=== PATIENT | male | born 1990 | race Caucasian/White ===

== ENCOUNTER 2017-02-25 15:42 | Emergency (ER) | payer OTHER ==
[2017-02-25 15:55] VITALS: O2SAT 98
[2017-02-25] MEDS ORDERED: Sodium Chloride 0.9% 1000 ML 1,000 ML IV STA (15:56)
[2017-02-25] MEDS ORDERED: MORPHINE SULFATE 2 MG INJ IV ONE (15:56)
[2017-02-25] MEDS ORDERED: Sodium Chloride 0.9% 1000 ML 1,000 ML ONE (16:01)
[2017-02-25] MEDS ORDERED: MORPHINE SULFATE 2 MG INJ ONE (16:01)
--- NOTE | 2017-02-25 16:05 | ERPHSYRPT ---
- History of Present Illness Time Seen by Provider: 02/25/17 16:03 Historian: patient Exam Limitations: no limitations Patient Subjective Stated Complaint: pt reports chest pain/pressure radiating to left arm beginning yesterday et progressively worse-reports difficulty breathing et unable to take a deep breath Triage Nursing Assessment: pt pink warm et [id number] nonlabored et shallow- lungs clear et equal-pt speaking in complete senteces with ease-cap refill 3 seconds Physician History: pt reports chest pain/pressure radiating to left arm beginning yesterday et progressively worse-reports difficulty breathing et unable to take a deep breath Timing/Duration: today Activities at Onset: none Quality: stabbing Location: substernal Chest Pain Radiation: arm Severity of Pain-Max: moderate Severity of Pain-Current: moderate Modifying Factors: Improves With: nothing Associated Symptoms: palpitations Prior Chest Pain/Cardiac Workup: no prior chest pain Nitro Today/Relief: no nitro taken today Aspirin Treatment Today: no aspirin today Allergies/Adverse Reactions: No Known Drug Allergies Allergy (Unverified 02/25/17 15:55) Home Medications: Omeprazole [Prilosec] 20 mg PO DAILY 02/25/17 [History] Hx Tetanus, Diphtheria Vaccination/Date Given: No Hx Influenza Vaccination/Date Given: No Hx Pneumococcal Vaccination/Date Given: No Immunizations Up to Date: Yes - Review of Systems Constitutional: No Fever, No Chills Eyes: No Symptoms Ears, Nose, & Throat: No Symptoms Respiratory: No Cough, No Dyspnea Cardiac: Chest Pain, Palpitations, No Edema, No Syncope Abdominal/Gastrointestinal: No Abdominal Pain, No Nausea, No Vomiting, No Diarrhea Genitourinary Symptoms: No Dysuria Musculoskeletal: No Back Pain, No Neck Pain Skin: No Rash Neurological: No Dizziness, No Focal Weakness, No Sensory Changes Psychological: No Symptoms Endocrine: No Symptoms All Other Systems: Reviewed and Negative - Past Medical History Pertinent Past Medical History: Yes GI Medical History: GERD - Past Surgical History Past Surgical History: Yes Gastrointestinal: Hernia Repair - Social History Smoking Status: Current every day smoker How long have you smoked: yrs Exposure to second hand smoke: Yes Drug Use: none Patient Lives Alone: No - Nursing Vital Signs Nursing Vital Signs: Initial Vital Signs Temperature 98.2 F 02/25/17 15:51 Pulse Rate 98 H 02/25/17 15:51 Respiratory Rate 20 02/25/17 15:51 Blood Pressure 153/84 02/25/17 15:51 O2 Sat by Pulse Oximetry 98 02/25/17 15:51 Pain Scale Pain Intensity 7 - Physical Exam General Appearance: no apparent distress, alert Eye Exam: PERRL/EOMI, eyes nml inspection Ears, Nose, Throat Exam: normal ENT inspection, moist mucous membranes Neck Exam: normal inspection, non-tender, supple, full range of motion Respiratory Exam: normal breath sounds, lungs clear, No respiratory distress Cardiovascular Exam: normal heart sounds, normal peripheral pulses, tachycardia , capillary refill <2 sec, No murmur, No edema, No pulse deficit Gastrointestinal/Abdomen Exam: soft, No tenderness, No mass Back Exam: normal inspection, No CVA tenderness, No vertebral tenderness Extremity Exam: normal inspection, normal range of motion Neurologic Exam: alert, oriented x 3, cooperative, normal mood/affect, sensation nml, No motor deficits Skin Exam: normal color, warm, dry SpO2: 98 Oxygen Delivery: Room Air - Course EKG Interpreted by Me: Sinus Tach Rhythm Strip: Sinus Tachycardia Ordered Tests: Active Orders 24 hr Category Date Time Status Labels Molder STAT Care 02/25/17 15:57 Active EKG-ER Only STAT Care 02/25/17 15:56 Active CHEST 2 VIEWS (PA AND LAT) Stat Exams 02/25/17 15:57 Taken CBC W DIFF Stat Lab 02/25/17 16:06 Completed CMP Stat Lab 02/25/17 16:06 Completed D-DIMER QUANTITATION Stat Lab 02/25/17 16:06 Completed TROPONIN Stat Lab 02/25/17 16:06 Completed Urine Triage Profile Stat Lab 02/25/17 15:57 Ordered Medication Summary Discontinued Medications Generic Name Dose Route Start Last Admin Trade Name Freq PRN Reason Stop Dose Admin Sodium Chloride 1,000 mls @ 999 mls/hr 02/25/17 15:56 02/25/17 16:03 Sodium Chloride 0.9% 1000 Ml IV 02/25/17 16:56 999 mls/hr .Q1H1M STA Administration Sodium Chloride Confirm 02/25/17 16:01 Sodium Chloride 0.9% 1000 Ml Administered 02/25/17 16:02 Dose 1,000 mls @ ud .ROUTE .STK-MED ONE Metoprolol Tartrate 50 mg 02/25/17 16:43 02/25/17 16:49 Lopressor 25mg Tab PO 02/25/17 16:44 50 mg STAT ONE Administration Metoprolol Tartrate Confirm 02/25/17 16:47 Lopressor 50 Mg Administered 02/25/17 16:48 Dose 50 mg .ROUTE .STK-MED ONE Morphine Sulfate 2 mg 02/25/17 15:56 02/25/17 16:03 Morphine Sulfate 2 Mg Inj IV 02/25/17 15:57 2 mg STAT ONE Administration Morphine Sulfate Confirm 02/25/17 16:01 Morphine Sulfate 2 Mg Inj Administered 02/25/17 16:02 Dose 2 mg .ROUTE .STK-MED ONE Lab/Rad Data: Laboratory Result Diagrams 02/25/17 16:06 02/25/17 16:06 Laboratory Results 02/25/17 02/25/17 02/25/17 Range/Units 16:06 16:06 16:06 WBC (4.0-10.5) K/mm3 RBC (4.1-5.6) M/mm3 Hgb (12.5-18.0) gm/dl Hct (42-50) % MCV (78-100) fl MCH (26-32) pg MCHC (32-36) g/dl RDW (11.5-14.0) % Plt Count (150-450) K/mm3 MPV (6-9.5) fl Gran % (36.0-66.0) % Lymphocytes % (24.0-44.0) % Monocytes % (0.0-12.0) % Eosinophils % (0.00-5.0) % Basophils % (0.0-0.4) % Basophils # (0-0.4) D-Dimer < 200 (0-500) ng/mL Sodium 143 (136-145) mEq/L Potassium 4.1 (3.5-5.1) mEq/L Chloride 105 (98-107) mEq/L Carbon Dioxide 27.4 (21-32) mEq/L Anion Gap 14.7 (5-15) MEQ/L BUN 11 (9-20) mg/dL Creatinine 1.05 (0.55-1.30) mg/dl Estimated GFR > 60 ML/MIN Glucose 95 (70-110) MG/DL Calcium 9.4 (8.5-10.1) mg/dL Total Bilirubin 0.60 (0.2-1.0) mg/dL AST 27 (15-37) U/L ALT 36 (12-78) U/L Alkaline Phosphatase 70 (46-116) U/L Troponin I < 0.017 (0.000-0.056) ng/ml Serum Total Protein 8.0 (6.4-8.2) gm/dL Albumin 4.6 (3.4-5.0) g/dL 02/25/17 Range/Units 16:06 WBC 8.0 (4.0-10.5) K/mm3 RBC 5.28 (4.1-5.6) M/mm3 Hgb 17.7 (12.5-18.0) gm/dl Hct 51.2 H (42-50) % MCV 97.0 (78-100) fl MCH 33.5 H (26-32) pg MCHC 34.6 (32-36) g/dl RDW 12.9 (11.5-14.0) % Plt Count 213 (150-450) K/mm3 MPV 9.1 (6-9.5) fl Gran % 61.1 (36.0-66.0) % Lymphocytes % 28.8 (24.0-44.0) % Monocytes % 8.7 (0.0-12.0) % Eosinophils % 1.2 (0.00-5.0) % Basophils % 0.2 (0.0-0.4) % Basophils # 0.02 (0-0.4) D-Dimer (0-500) ng/mL Sodium (136-145) mEq/L Potassium (3.5-5.1) mEq/L Chloride (98-107) mEq/L Carbon Dioxide (21-32) mEq/L Anion Gap (5-15) MEQ/L BUN (9-20) mg/dL Creatinine (0.55-1.30) mg/dl Estimated GFR ML/MIN Glucose (70-110) MG/DL Calcium (8.5-10.1) mg/dL Total Bilirubin (0.2-1.0) mg/dL AST (15-37) U/L ALT (12-78) U/L Alkaline Phosphatase (46-116) U/L Troponin I (0.000-0.056) ng/ml Serum Total Protein (6.4-8.2) gm/dL Albumin (3.4-5.0) g/dL - Progress Progress: improved Air Movement: good Blood Culture(s) Obtained: No Antibiotics given: No Counseled pt/family regarding: lab results, diagnosis, need for follow-up, rad results - Departure Time of Disposition: 16:57 Departure Disposition: Home Clinical Impression: Heart palpitations, Elevated blood pressure, situational Condition: Stable Critical Care Time: Yes Critical Care Time(excluding separately billable procedures): 30-74 minutes Referrals: GABINO PRINCE [NON-STAFF PHY W/O PRIVILEGES] - Instructions: Arrhythmias, Hypertension Additional Instructions: Please follow-up with your primary care physician RENEE in next 2-3 days. We have ruled out emergent cause of palpitation, but you stimulate further workup for your problem. You also have a elevated blood pressure, for which we have given you. Metoprolol 50 mg at night, which will also help you for your palpitation. You should not drink heavy alcohol consumption. Do not drive for at least 12 hours. Prescriptions: Metoprolol Tartrate 50 mg [Lopressor 50 MG] 50 mg PO QHS #30 tablet
[2017-02-25 16:08] LABS: BASOPHIL % 0.2 % (0.0-0.4); Eosinophil % 1.2 % (0.00-5.0); Granulocytes % 61.1 % (36.0-66.0); Lymphocytes % 28.8 % (24.0-44.0); Mean Corpuscular Hemoglobin 33.5 pg (26-32); Mean Platelet Volume 9.1 fl (6-9.5); Monocytes % 8.7 % (0.0-12.0); Platelet Count 213 K/mm3 (150-450); Red Blood Count 5.28 M/mm3 (4.1-5.6); Red Cell Distribution Width 12.9 % (11.5-14.0)
[2017-02-25 16:37] LABS: ALBUMIN 4.6 g/dL (3.4-5.0); ALKALINE PHOSPHATASE 70 U/L (46-116); ANION GAP 14.7 MEQ/L (5-15); BLOOD UREA NITROGEN 11 mg/dL (9-20); CHLORIDE 105 mEq/L (98-107); Carbon Dioxide 27.4 mEq/L (21-32); Glucose 95 MG/DL (70-110); Potassium 4.1 mEq/L (3.5-5.1); SGOT/AST 27 U/L (15-37); SGPT/ALT 36 U/L (12-78); SODIUM 143 mEq/L (136-145)
[2017-02-25] MEDS ORDERED: Lopressor 25MG Tab PO ONE (16:43)
[2017-02-25] MEDS ORDERED: Lopressor 50 MG ONE (16:47)
[2017-02-25 17:31] VITALS: BP 130/70; PULSE 88
--- NOTE | 2017-02-25 21:16 | XRAY ---
Indication: Chest pressure. Comparison: None PA/lateral chest hyperinflated and clear. Heart is not enlarged. Vascularity normal. Bony thorax intact. Impression: Nonacute hyperinflated chest.
== END 2017-02-25 17:31 | disposition home or self-care (01) ==
LOC: ED 15:42
DX: R00.2 Palpitations (principal); R03.0 Elevated blood-pressure reading, without diagnosis of hypertension; R07.9 Chest pain, unspecified
CPT/HCPCS: 36000; 36415; 71020; 80053; 84484; 85025; 85379; 93005; 93041; 96360; 96374; 99284; J2270; A9270-GY

== ENCOUNTER 2017-03-10 10:56 | Emergency (ER) | payer OTHER ==
[2017-03-10] MEDS ORDERED: THIAMINE 200 MG/2 ML IM ONE (11:56)
[2017-03-10] MEDS ORDERED: Dextrose 5%-Lr IV Solution 1000 ML 1,000 ML IV SCH (12:00)
[2017-03-10] MEDS ORDERED: THIAMINE 200 MG/2 ML ONE (12:02)
[2017-03-10] MEDS ORDERED: Dextrose 5%-Lr IV Solution 1000 ML 1,000 ML IV ONE (12:02)
--- NOTE | 2017-03-10 12:23 | ERPHSYRPT ---
- History of Present Illness Time Seen by Provider: 03/10/17 12:11 Source: patient Patient Subjective Stated Complaint: PT REPORTS DRINKING A CASE OF BEER A DAY- LAST DRINK CAIO 1000 THIS AM-REPORTS HEADACHE-DENIES TREMORS DENIES N/V Triage Nursing Assessment: PT PINK WARM ET DRY-RESP EASY ET NONLABORED-SPEAKING IN COMPLETE [id number] ANSWERING ALL QUESTIONS CORRECTLY Physician History: CC: alcohol Hx: 26 y/o patient with no local doctor. He has hx of alcohol abuse. He had been thru detox one year ago in [place]. He moved here three weeks ago in attempt to reconnect with exwife. That did not work out so he started drinking alcohol for past 8 days, drinking 30 beers per day as he was upset about exwife. He now wants to stop alcohol again. He drank 1 beer at 10AM. Quit drinking this AM at 5AM. He lives alone but has family. No suicide thoughts, no hallucinations, head feels heavy, blurry vision. ALL: PCN Meds: Omperozaole Surg: Testicle, hernia Social: Allergies/Adverse Reactions: No Known Drug Allergies Allergy (Verified 03/10/17 11:53) Home Medications: Omeprazole [Prilosec] 20 mg PO DAILY 02/25/17 [History] Hx Tetanus, Diphtheria Vaccination/Date Given: No Hx Influenza Vaccination/Date Given: No Hx Pneumococcal Vaccination/Date Given: No Immunizations Up to Date: Yes - Past Medical History Pertinent Past Medical History: Yes GI Medical History: GERD Other Medical History: alcohol abuse - Past Surgical History Past Surgical History: Yes Gastrointestinal: Hernia Repair - Social History Smoking Status: Current every day smoker How long have you smoked: yrs Exposure to second hand smoke: Yes Drug Use: none Patient Lives Alone: No - Review of Systems Constitutional: No Fever, No Chills Eyes: Vision Changes Ears, Nose, & Throat: No Symptoms Respiratory: No Symptoms Cardiac: No Chest Pain Abdominal/Gastrointestinal: No Abdominal Pain, No Nausea, No Vomiting, No Diarrhea Genitourinary Symptoms: No Dysuria Musculoskeletal: No Back Pain, No Neck Pain Neurological: No Focal Weakness, No Headache, No Parasthesia Psychological: Alcohol Abuse, No Drug Abuse, No Depression, No Suicidal Ideations, No Homicidal Ideations, No Emotional Lability, No Hallucinations All Other Systems: Reviewed and Negative - Nursing Vital Signs Nursing Vital Signs: Initial Vital Signs Temperature 98.3 F 03/10/17 11:50 Pulse Rate 86 03/10/17 11:50 Respiratory Rate 20 03/10/17 11:50 Blood Pressure 129/80 03/10/17 11:50 O2 Sat by Pulse Oximetry 96 03/10/17 11:50 Pain Scale Pain Intensity 6 - Physical Exam General Appearance: alert Eyes, Ears, Nose, Throat Exam: normal ENT inspection, moist mucous membranes Neck Exam: normal inspection, non-tender, supple Respiratory Exam: normal breath sounds, lungs clear Cardiovascular Exam: regular rate/rhythm Gastrointestinal/Abdominal Exam: soft, No tenderness, No distention Extremities Exam: normal inspection, normal range of motion Neurological Exam: alert, normal mood/affect, calm, 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, oriented x 3 Appearance: appropriate appearance Thoughts/Hallucinations: normal thought pattern Skin Exam: normal color, warm, dry, No rash SpO2 Interpretation: normal SpO2: 97 Oxygen Delivery: Room Air - Course Nursing assessment & vital signs reviewed: Yes EKG Interpreted by Me: RATE (70), Sinus Rhythm, NORMAL AXIS, NORMAL INTERVALS ( QTc 424), NORMAL QRS, NORMAL ST-T Ordered Tests: Active Orders 24 hr Category Date Time Status Clean Catch Urine Specimen STAT Care 03/10/17 11:56 Active EKG-ER Only STAT Care 03/10/17 11:56 Active IV Insertion STAT Care 03/10/17 11:56 Active Psychiatric Evaluation STAT Care 03/10/17 12:53 Active Pulse Oximetry (ED) STAT Care 03/10/17 11:56 Active Regular Diet Diet 03/10/17 Lunch Active CBC W DIFF Stat Lab 03/10/17 12:00 Completed CMP Stat Lab 03/10/17 12:00 Completed ETHYL ALCOHOL Stat Lab 03/10/17 12:00 Completed MAGNESIUM Stat Lab 03/10/17 12:00 Completed PROTIME WITH INR Stat Lab 03/10/17 12:00 Completed UA W/RFX UR CULTURE Stat Lab 03/10/17 12:00 Completed Urine Triage Profile Stat Lab 03/10/17 12:00 Completed Medication Summary Generic Name Dose Route Start Last Admin Trade Name Freq PRN Reason Stop Dose Admin Dextrose/Lactated Ringer's 1,000 mls @ 100 mls/hr 03/10/17 12:00 03/10/17 12: 09 Dextrose 5%-Lr Iv Solution 1000 Ml IV 04/09/17 11:59 100 mls/hr .Q10H NLIDA Administration Discontinued Medications Generic Name Dose Route Start Last Admin Trade Name Mariza PRN Reason Stop Dose Admin Thiamine HCl 100 mg 03/10/17 11:56 03/10/17 12:09 Thiamine 200 Mg/2 Ml IM 03/10/17 11:57 100 mg STAT ONE Administration Thiamine HCl Confirm 03/10/17 12:02 Thiamine 200 Mg/2 Ml Administered 03/10/17 12:03 Dose 200 mg .ROUTE .STK-MED ONE Lab/Rad Data: Laboratory Result Diagrams 03/10/17 12:00 03/10/17 12:00 Laboratory Results 03/10/17 03/10/17 03/10/17 Range/Units 12:00 12:00 12:00 WBC 6.0 (4.0-10.5) K/mm3 RBC 5.25 (4.1-5.6) M/mm3 Hgb 17.9 (12.5-18.0) gm/dl Hct 51.6 H (42-50) % MCV 98.3 (78-100) fl MCH 34.1 H (26-32) pg MCHC 34.7 (32-36) g/dl RDW 12.8 (11.5-14.0) % Plt Count 152 (150-450) K/mm3 MPV 11.1 H (6-9.5) fl Gran % 51.3 (36.0-66.0) % Lymphocytes % 36.0 (24.0-44.0) % Monocytes % 9.0 (0.0-12.0) % Eosinophils % 3.0 (0.00-5.0) % Basophils % 0.7 (0.0-0.4) % Basophils # 0.04 (0-0.4) INR 1.02 (0.8-3.0) Sodium 142 (136-145) mEq/L Potassium 4.0 (3.5-5.1) mEq/L Chloride 106 (98-107) mEq/L Carbon Dioxide 26.2 (21-32) mEq/L Anion Gap 14.2 (5-15) MEQ/L BUN 7 L (9-20) mg/dL Creatinine 0.87 (0.55-1.30) mg/dl Estimated GFR > 60 ML/MIN Glucose 78 (70-110) MG/DL Calcium 8.9 (8.5-10.1) mg/dL Magnesium 2.1 (1.8-2.4) mg/dL Total Bilirubin 0.30 (0.2-1.0) mg/dL AST 30 (15-37) U/L ALT 29 (12-78) U/L Alkaline Phosphatase 67 (46-116) U/L Serum Total Protein 7.8 (6.4-8.2) gm/dL Albumin 4.5 (3.4-5.0) g/dL Ur Collection Type Urine Color (YELLOW) Urine Appearance (CLEAR) Urine pH (5-6) Ur Specific [place] (1.005-1.025) Urine Protein (Negative) Urine Ketones (NEGATIVE) Urine Blood (0-5) Adi/ul Urine Nitrite (NEGATIVE) Urine Bilirubin (NEGATIVE) Urine Urobilinogen (0-1) mg/dL Ur Leukocyte Esterase (NEGATIVE) Urine Glucose (NEGATIVE) mg/dL Urine Opiates Level (NEGATIVE) Ur Methadone (NEGATIVE) Urine Barbiturates (NEGATIVE) Ur Phencyclidine (PCP) (NEGATIVE) Urine Amphetamine (NEGATIVE) U Benzodiazepine Level (NEGATIVE) Urine Cocaine (NEGATIVE) Urine Marijuana (THC) (NEGATIVE) Ethyl Alcohol 0.050 H (0.00-0.01) % Specimen Received 03/10/17 03/10/17 Range/Units 12:00 12:00 WBC (4.0-10.5) K/mm3 RBC (4.1-5.6) M/mm3 Hgb (12.5-18.0) gm/dl Hct (42-50) % MCV (78-100) fl MCH (26-32) pg MCHC (32-36) g/dl RDW (11.5-14.0) % Plt Count (150-450) K/mm3 MPV (6-9.5) fl Gran % (36.0-66.0) % Lymphocytes % (24.0-44.0) % Monocytes % (0.0-12.0) % Eosinophils % (0.00-5.0) % Basophils % (0.0-0.4) % Basophils # (0-0.4) INR (0.8-3.0) Sodium (136-145) mEq/L Potassium (3.5-5.1) mEq/L Chloride (98-107) mEq/L Carbon Dioxide (21-32) mEq/L Anion Gap (5-15) MEQ/L BUN (9-20) mg/dL Creatinine (0.55-1.30) mg/dl Estimated GFR ML/MIN Glucose (70-110) MG/DL Calcium (8.5-10.1) mg/dL Magnesium (1.8-2.4) mg/dL Total Bilirubin (0.2-1.0) mg/dL AST (15-37) U/L ALT (12-78) U/L Alkaline Phosphatase (46-116) U/L Serum Total Protein (6.4-8.2) gm/dL Albumin (3.4-5.0) g/dL Ur Collection Type VOID Urine Color YELLOW (YELLOW) Urine Appearance CLEAR (CLEAR) Urine pH 6.0 (5-6) Ur Specific [place] 1.015 (1.005-1.025) Urine Protein NEGATIVE (Negative) Urine Ketones NEGATIVE (NEGATIVE) Urine Blood NEGATIVE (0-5) Adi/ul Urine Nitrite NEGATIVE (NEGATIVE) Urine Bilirubin NEGATIVE (NEGATIVE) Urine Urobilinogen NORMAL (0-1) mg/dL Ur Leukocyte Esterase NEGATIVE (NEGATIVE) Urine Glucose NEGATIVE (NEGATIVE) mg/dL Urine Opiates Level NEG. (NEGATIVE) Ur Methadone NEG. (NEGATIVE) Urine Barbiturates NEG. (NEGATIVE) Ur Phencyclidine (PCP) NEG. (NEGATIVE) Urine Amphetamine NEG. (NEGATIVE) U Benzodiazepine Level NEG. (NEGATIVE) Urine Cocaine NEG. (NEGATIVE) Urine Marijuana (THC) NEG. (NEGATIVE) Ethyl Alcohol (0.00-0.01) % Specimen Received 03/10/2017 1220 - Progress Progress Note: 03/10/17 15:15 Labs reviewed. Vitals signs stable with no evidence of delerium tremens. Pt ate meal. Had HC Tele consult. Spoke to Dr Jimenez who stafffed with [employer] and santiago advised OP follow up for alcohol. Counseled pt/family regarding: lab results, diagnosis, need for follow-up - Departure Time of Disposition: 15:16 Departure Disposition: Home Clinical Impression: Alcohol consumption binge drinking Condition: Stable Critical Care Time: No Referrals: Provider,Unknown [Primary Care Provider] - [facility] [Provider Group] Instructions: Alcohol Abuse and Alcoholism Additional Instructions: No driving and stay with family today. Arrange outpatient follow up as advised by [facility]- list of resources attached. Return for problems or concerns.
[2017-03-10 12:40] LABS: BASOPHIL % 0.7 % (0.0-0.4); Granulocytes % 51.3 % (36.0-66.0); Mean Cell Volume 98.3 fl (78-100); Mean Corpuscular Hemoglobin 34.1 pg (26-32); Mean Platelet Volume 11.1 fl (6-9.5); Platelet Count 152 K/mm3 (150-450); Red Blood Count 5.25 M/mm3 (4.1-5.6); Red Cell Distribution Width 12.8 % (11.5-14.0)
[2017-03-10 12:41] LABS: Collection Type VOID; INR 1.02 (0.8-3.0); Leukocyte Esterase NEGATIVE (NEGATIVE); PROTIME 11.4 SECONDS (8.83-12.87)
[2017-03-10 12:42] LABS: ADD URINE CULTURE? NO (NO); ALBUMIN 4.5 g/dL (3.4-5.0); ALKALINE PHOSPHATASE 67 U/L (46-116); ANION GAP 14.2 MEQ/L (5-15); BLOOD UREA NITROGEN 7 mg/dL (9-20); Bilirubin NEGATIVE (NEGATIVE); Blood NEGATIVE Ery/ul (0-5); CHLORIDE 106 mEq/L (98-107); COMPLETE URINE MICROSCOPIC? NO; Carbon Dioxide 26.2 mEq/L (21-32); Glucose 78 MG/DL (70-110); Glucose NEGATIVE (NEGATIVE); MAGNESIUM 2.1 mg/dL (1.8-2.4); SGOT/AST 30 U/L (15-37); SGPT/ALT 29 U/L (12-78); SODIUM 142 mEq/L (136-145); Total Protein 7.8 gm/dL (6.4-8.2)
[2017-03-10 15:39] VITALS: BP 134/60; PULSE 88; O2SAT 99
== END 2017-03-10 15:37 | disposition home or self-care (01) ==
LOC: ED 10:56
DX: F10.129 Alcohol abuse with intoxication, unspecified (principal)
CPT/HCPCS: 36000; 36415; 80053; 80307; 81002; 83735; 85025; 85610; 90791; 93005; 96360; 96361; 96372; 99285; G0481; Q3014

== ENCOUNTER 2020-09-27 15:55 | Emergency (ER) | payer OTHER ==
--- NOTE | 2020-09-27 16:03 | ERPHSYRPT ---
- History of Present Illness Time Seen by Provider: 09/27/20 16:03 Source: patient, EMS Exam Limitations: no limitations Physician History: This is a 30-year-old white male who is not taking any medications chronically and presents to the emergency department because of sensation of palpitations and rapid heart rate. 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 However, he relapsed earlier today. He is not having chest pain. He has no abdominal pain. He is not short of breath. He has had no nausea vomiting or fevers. Patient is not suicidal or homicidal. Timing/Duration: today Severity of Symptoms-Max: mild Severity of Symptoms-Current: mild Context related to: other (Methamphetamine abuserelapse) Associated Symptoms: anxiety, ingestion Previous symptoms: same symptoms as today Allergies/Adverse Reactions: Penicillins Allergy (Verified 09/27/20 16:05) Home Medications: No Reportable Medications [No Reported Medications] 09/27/20 [History] Hx Tetanus, Diphtheria Vaccination/Date Given: No Hx Influenza Vaccination/Date Given: No Hx Pneumococcal Vaccination/Date Given: No Travel Risk - International Travel Have you traveled outside of the country in past 3 weeks: No - Coronavirus Screening Are you exhibiting any of the following symptoms?: No Close contact with a COVID-19 positive Pt in past 14-21 Days: No - Vaccine Status Have you recieved a Covid-19 vaccination: No - Past Medical History Pertinent Past Medical History: Yes Neurological History: No Pertinent History ENT History: No Pertinent History Cardiac History: No Pertinent History Respiratory History: No Pertinent History Endocrine Medical History: No Pertinent History Musculoskeletal History: No Pertinent History GI Medical History: GERD History: No Pertinent History Psycho-Social History: No Pertinent History Male Reproductive Disorders: No Pertinent History Other Medical History: alcohol abuse - Past Surgical History Past Surgical History: Yes Neuro Surgical History: No Pertinent History Cardiac: No Pertinent History Respiratory: No Pertinent History Gastrointestinal: Hernia Repair Genitourinary: No Pertinent History Musculoskeletal: No Pertinent History - Social History Smoking Status: Current every day smoker How long have you smoked: yrs Exposure to second hand smoke: Yes Drug Use: none Patient Lives Alone: No - Review of Systems Constitutional: No Symptoms Eyes: No Symptoms Ears, Nose, & Throat: No Symptoms Respiratory: No Symptoms Cardiac: Palpitations Abdominal/Gastrointestinal: No Symptoms Genitourinary Symptoms: No Symptoms Musculoskeletal: No Symptoms Skin: No Symptoms Neurological: No Symptoms Psychological: Drug Abuse, Anxiety Endocrine: No Symptoms Hematologic/Lymphatic: No Symptoms Immunological/Allergic: No Symptoms All Other Systems: Reviewed and Negative - Nursing Vital Signs Nursing Vital Signs: Initial Vital Signs O2 Sat by Pulse Oximetry 98 09/27/20 16:15 Pain Scale Pain Intensity 6 - Physical Exam General Appearance: no apparent distress, alert, anxiety Eyes, Ears, Nose, Throat Exam: normal ENT inspection, moist mucous membranes Neck Exam: normal inspection, non-tender, supple, full range of motion Respiratory Exam: normal breath sounds, lungs clear, airway intact, No chest tenderness, No respiratory distress Cardiovascular Exam: regular rate/rhythm, normal heart sounds, normal peripheral pulses Gastrointestinal/Abdominal Exam: soft, normal bowel sounds, No tenderness Current Suicidality: denies suicide plan Neurological Exam: alert, 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 as tested, oriented x 3, anxious Appearance: appropriate appearance, appropriate insight, no memory impairment Behavior/Eye Contact/Speech: alert & cooperative, good eye contact, normal speech Skin Exam: normal color, warm, dry SpO2 Interpretation: normal O2 Delivery: Room Air - Course Nursing assessment & vital signs reviewed: Yes Ordered Tests: Active Orders 24 hr Category Date Time Status Clean Catch Urine Specimen STAT Care 09/27/20 16:04 Active IV Insertion STAT Care 09/27/20 16:04 Active Pulse Oximetry (ED) STAT Care 09/27/20 16:04 Active ACETAMINOPHEN Stat Lab 09/27/20 16:20 Completed CBC W DIFF Stat Lab 09/27/20 16:20 Completed CMP Stat Lab 09/27/20 16:20 Completed ETHYL ALCOHOL Stat Lab 09/27/20 16:20 Completed SALICYLATE Stat Lab 09/27/20 16:20 Completed UA W/RFX UR CULTURE Stat Lab 09/27/20 17:34 Completed Urine Triage Profile Stat Lab 09/27/20 17:34 Received Medication Summary Discontinued Medications Generic Name Dose Route Start Last Admin Trade Name Freq PRN Reason Stop Dose Admin Sodium Chloride 1,000 mls @ 999 mls/hr 09/27/20 16:04 09/27/20 17:21 Sodium Chloride 0.9% 1000 Ml IV 09/27/20 17:04 Infused .Q1H1M STA Infusion Sodium Chloride Confirm 09/27/20 16:18 Sodium Chloride 0.9% 1000 Ml Administered 09/27/20 16:19 Dose 1,000 mls @ ud .ROUTE .STK-MED ONE Lorazepam 1 mg 09/27/20 16:05 09/27/20 16:21 Ativan 2 Mg/1 Ml Vial IV 09/27/20 16:06 1 mg STAT ONE Administration Lorazepam Confirm 09/27/20 16:17 Ativan 2 Mg/1 Ml Vial Administered 09/27/20 16:18 Dose 2 mg .ROUTE .STK-MED ONE Ondansetron HCl 4 mg 09/27/20 16:04 09/27/20 16:21 Zofran 4 Mg/2 Ml Vial IV 09/27/20 16:05 4 mg STAT ONE Administration Ondansetron HCl Confirm 09/27/20 16:17 Zofran 4 Mg/2 Ml Vial Administered 09/27/20 16:18 Dose 4 mg .ROUTE .STK-MED ONE Lab/Rad Data: Laboratory Result Diagrams 09/27/20 16:20 09/27/20 16:20 Laboratory Results 09/27/20 09/27/20 09/27/20 Range/Units 17:34 16:20 16:20 WBC 8.0 (4.0-10.5) K/mm3 RBC 5.26 (4.1-5.6) M/mm3 Hgb 17.5 (12.5-18.0) gm/dl Hct 50.4 H (42-50) % MCV 95.8 (78-100) fl MCH 33.3 H (26-32) pg MCHC 34.7 (32-36) g/dl RDW 12.4 (11.5-14.0) % Plt Count 202 (150-450) K/mm3 MPV 9.4 (7.5-11.0) fl Gran % 63.3 (36.0-66.0) % Eos # (Auto) 0.04 (0-0.5) Absolute Lymphs (auto) 2.11 (1.0-4.6) Absolute Monos (auto) 0.76 (0.0-1.3) Lymphocytes % 26.3 (24.0-44.0) % Monocytes % 9.5 (0.0-12.0) % Eosinophils % 0.5 (0.00-5.0) % Basophils % 0.4 (0.0-0.4) % Absolute Granulocytes 5.07 (1.4-6.9) Basophils # 0.03 (0-0.4) Sodium 138 (137-145) mmol/L Potassium 3.4 L (3.5-5.1) mmol/L Chloride 103 (98-107) mmol/L Carbon Dioxide 23 (22-30) mmol/L Anion Gap 14.6 (5-15) MEQ/L BUN 12 (9-20) mg/dL Creatinine 0.86 (0.66-1.25) mg/dL Estimated GFR > 60.0 ML/MIN Glucose 93 (74-106) mg/dL Calcium 9.9 (8.4-10.2) mg/dL Total Bilirubin 1.50 H (0.2-1.3) mg/dL AST 58 (17-59) U/L ALT 49 (0-50) U/L Alkaline Phosphatase 83 (38-126) U/L Serum Total Protein 8.1 (6.3-8.2) g/dL Albumin 4.8 (3.5-5.0) g/dL Urine Color YELLOW (YELLOW) Urine Appearance CLEAR (CLEAR) Urine pH 9.0 (5-6) Ur Specific [place] 1.008 (1.005-1.025) Urine Protein NEGATIVE (Negative) Urine Ketones TRACE (NEGATIVE) Urine Blood NEGATIVE (0-5) Adi/ul Urine Nitrite NEGATIVE (NEGATIVE) Urine Bilirubin NEGATIVE (NEGATIVE) Urine Urobilinogen NEGATIVE (0-1) mg/dL Ur Leukocyte Esterase NEGATIVE (NEGATIVE) Urine WBC (Auto) NONE (0-5) /HPF Urine RBC (Auto) NONE (0-2) /HPF U Epithel Cells (Auto) NONE (FEW) /HPF Urine Bacteria (Auto) NONE (NEGATIVE) /HPF Urine Culture Reflexed NO (NO) Urine Glucose NEGATIVE (NEGATIVE) mg/dL Salicylates 1.2 L (2-20) mg/dL Acetaminophen < 10 L (10-30) ug/ml Ethyl Alcohol < 10 (0-10) mg/dL - Progress Progress: improved, re-examined Counseled pt/family regarding: lab results, diagnosis, need for follow-up - Departure Departure Disposition: Home Clinical Impression: Anxiety about health, Methamphetamine use Condition: Stable Critical Care Time: No Referrals: Provider,Unknown [Primary Care Provider] - Additional Instructions: Drink plenty of clear liquids. Avoid illicit drug use of any kind. Follow-up with your primary care physician for further management
[2020-09-27] MEDS ORDERED: Sodium Chloride 0.9% 1000 ML 1,000 ML IV STA (16:04)
[2020-09-27] MEDS ORDERED: Zofran 4 MG/2 ML VIAL IV ONE (16:04)
[2020-09-27] MEDS ORDERED: Ativan 2 MG/1 ML VIAL IV ONE (16:05)
[2020-09-27] MEDS ORDERED: Ativan 2 MG/1 ML VIAL ONE (16:17)
[2020-09-27] MEDS ORDERED: Zofran 4 MG/2 ML VIAL ONE (16:17)
[2020-09-27] MEDS ORDERED: Sodium Chloride 0.9% 1000 ML 1,000 ML ONE (16:18)
[2020-09-27 16:30] LABS: Absolute Neutrophil Ct (ANC) 5.07 (1.4-6.9); BASOPHIL % 0.4 % (0.0-0.4); Basophil (Absolute #) 0.03 (0-0.4); Eosinophil % 0.5 % (0.00-5.0); Eosinophil (Absolute #) 0.04 (0-0.5); Hematocrit 50.4 % (42-50); Hemoglobin 17.5 gm/dl (12.5-18.0); Lymphocyte (Absolute #) 2.11 (1.0-4.6); Lymphocytes % 26.3 % (24.0-44.0); Mean Cell Volume 95.8 fl (78-100); Mean Corpuscular Hemoglobin 33.3 pg (26-32); Mean Corpuscular Hgb Concent. 34.7 g/dl (32-36); Mean Platelet Volume 9.4 fl (7.5-11.0); Monocyte (Absolute #) 0.76 (0.0-1.3); Monocytes % 9.5 % (0.0-12.0); Neutrophil % 63.3 % (36.0-66.0); Platelet Count 202 K/mm3 (150-450); Red Blood Count 5.26 M/mm3 (4.1-5.6); Red Cell Distribution Width 12.4 % (11.5-14.0)
[2020-09-27 16:42] LABS: ACETAMINOPHEN < 10 ug/ml (10-30); ALBUMIN 4.8 g/dL (3.5-5.0); ALKALINE PHOSPHATASE 83 U/L (38-126); ANION GAP 14.6 MEQ/L (5-15); BLOOD UREA NITROGEN 12 mg/dL (9-20); CHLORIDE 103 mmol/L (98-107); Calcium 9.9 mg/dL (8.4-10.2); Carbon Dioxide 23 mmol/L (22-30); Creatinine 1 0.86 mg/dL (0.66-1.25); EST GLOMERULAR FILTRATION RATE > 60.0 ML/MIN; ETHYL ALCOHOL < 10 mg/dL (0-10); Glucose 93 mg/dL (74-106); Potassium 3.4 mmol/L (3.5-5.1); SALICYLATE 1.2 mg/dL (2-20); SGOT/AST 58 U/L (17-59); SGPT/ALT 49 U/L (0-50); SODIUM 138 mmol/L (137-145); Total Protein 8.1 g/dL (6.3-8.2)
[2020-09-27 17:51] LABS: Appearance CLEAR (CLEAR); Bilirubin NEGATIVE (NEGATIVE); Blood NEGATIVE Ery/ul (0-5); Glucose NEGATIVE (NEGATIVE); Ketones TRACE (NEGATIVE); Leukocyte Esterase NEGATIVE (NEGATIVE); Nitrite NEGATIVE (NEGATIVE); Protein,Urine Dip NEGATIVE (Negative); Specific Gravity 1.008 (1.005-1.025); Urobilinogen NEGATIVE mg/dL (0-1)
[2020-09-27 18:01] VITALS: PULSE 76
[2020-09-27 18:06] LABS: Amphetamine,Urine POSITIVE (NEGATIVE); Barbiturate,Urine NEGATIVE (NEGATIVE); Benzodiazepine,Urine NEGATIVE (NEGATIVE); Cocaine,Urine NEGATIVE (NEGATIVE); Methadone,Urine NEGATIVE (NEGATIVE); Opiate,Urine NEGATIVE (NEGATIVE); PCP,Urine NEGATIVE (NEGATIVE); THC,Urine POSITIVE (NEGATIVE)
[2020-09-27 18:18] VITALS: BP 150/84; O2SAT 98
== END 2020-09-27 18:20 | disposition home or self-care (01) ==
LOC: ED 15:55
DX: F15.90 Other stimulant use, unspecified, uncomplicated (principal); R00.2 Palpitations; T43.625A Adverse effect of amphetamines, initial encounter; Y92.9 Unspecified place or not applicable; Z72.0 Tobacco use
CPT/HCPCS: 36000; 36415; 80053; 80307; 81001; 85025; 94760; 96374; 96375; 99284; G0480; J2060; J2405